=== PATIENT | female | born 1990 | race Caucasian/White ===

== ENCOUNTER 2018-04-05 09:14 | Emergency (ER) | payer OTHER ==
[2018-04-05] MEDS ORDERED: Ondansetron 4 MG Tab.DIS PO ONE (09:38)
[2018-04-05] MEDS ORDERED: Meclizine 25 MG Tab PO ONE (09:43)
--- NOTE | 2018-04-05 09:49 | EDM.PDOC ---
ED HPI GENERAL MEDICAL PROBLEM - General Chief Complaint: Gastrointestinal Problem Stated Complaint: WEAKNESS,FATIGUE Time Seen by Provider: 04/05/18 09:35 Source of Information: Reports: Patient, Old Records, RN History Limitations: Reports: No Limitations - History of Present Illness INITIAL COMMENTS - FREE TEXT/NARRATIVE: 28 yo female presents with a list of complaints. She has known endometriosis and is having some lower abdominal cramping. She has mild vertigo with nausea without vomiting. No fever. She feels like she might pass out and has done so on numerous occasions in the past. She has no blood in her stool. Feels tired more lately. Says during her menses she takes ibuprofen 800 mg q 5 h. Onset: Gradual Onset Date: 04/04/18 Duration: Hour(s):, Constant Location: Reports: Head, Abdomen Quality: Reports: Other (mild abd cramping) Severity: Mild Improves with: Reports: None Worsens with: Reports: Other (menses) Context: Reports: Other (hx of endometriosis) Associated Symptoms: Reports: Nausea/Vomiting (no vomiting). 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 Denies: Anorexia, Black Stool, Bloody Stool, Constipation, Diarrhea, Decreased Appetite, Distension, Flatus, Hematemesis, Hematochezia, Melena, Vomiting : Reports: No Symptoms Musculoskeletal: Reports: No Symptoms Skin: Reports: No Symptoms Neurological: Reports: Dizziness (mild vertigo) ED EXAM, GI/ABD - Physical Exam Exam: See Below Exam Limited By: No Limitations General Appearance: Alert, WD/WN, No Apparent Distress Eyes: Bilateral: Normal Appearance Ears: Normal External Exam, Normal Canal, Hearing Grossly Normal, Normal TMs Nose: Normal Inspection, Normal Mucosa, No Blood Throat/Mouth: Normal Inspection, Normal Lips, Normal Oropharynx, Normal Voice, No Airway Compromise Head: Atraumatic, Normocephalic Neck: Normal Inspection Respiratory/Chest: No Respiratory Distress, Lungs Clear, Normal Breath Sounds, No Accessory Muscle Use Cardiovascular: Regular Rate, Rhythm, No Edema GI/Abdominal Exam: Normal Bowel Sounds, Soft, Non-Tender, No Distention Back Exam: Normal Inspection. No: CVA Tenderness (R), CVA Tenderness (L) Extremities: Normal Inspection, Normal Range of Motion, Non-Tender, No Pedal Edema Neurological: Alert, Oriented, CN II-XII Intact, Normal Cognition, No Motor/ Sensory Deficits Psychiatric: Normal Affect, Normal Mood Skin Exam: Warm, Dry, Intact, Normal Color, No Rash Lymphatic: No Adenopathy Course - Vital Signs Last Recorded V/S: Last Vital Signs Temp 36.2 C 04/05/18 09:29 Pulse 64 04/05/18 09:29 Resp 16 04/05/18 09:29 BP 123/75 04/05/18 09:29 Pulse Ox 100 04/05/18 09:29 Orthostatic Blood Pressure [ 126/68 Standing] Orthostatic Blood Pressure [ 129/68 Sitting] Orthostatic Blood Pressure [ 114/65 Supine] - Orders/Labs/Meds Orders: Active Orders 24 hr Category Date Time Status Orthostatic Vital Signs [RC] ASDIRECTED Care 04/05/18 09:43 Active HCG QUALITATIVE,URINE [URCHEM] Stat Lab 04/05/18 09:52 Ordered Labs: Laboratory Tests 04/05/18 04/05/18 04/05/18 Range/Units 09:52 09:52 09:52 Hgb 13.1 (12.0-15.0) g/dL Creatinine (0.6-1.0) mg/dL Est Cr Clr Drug Dosing Estimated GFR (MDRD) (>60) TSH, Ultra Sensitive 0.830 (0.358-3.740) uIU/mL Urine HCG, Qual Negative 04/05/18 Range/Units 09:52 Hgb (12.0-15.0) g/dL Creatinine 0.9 (0.6-1.0) mg/dL Est Cr Clr Drug Dosing TNP Estimated GFR (MDRD) > 60 (>60) TSH, Ultra Sensitive (0.358-3.740) uIU/mL Urine HCG, Qual Meds: Medications Discontinued Medications Generic Name Dose Route Start Last Admin Trade Name Freq PRN Reason Stop Dose Admin Meclizine HCl 25 mg 04/05/18 09:43 04/05/18 09:54 Antivert PO 04/05/18 09:44 25 mg ONETIME ONE Administration Ondansetron HCl 4 mg 04/05/18 09:38 04/05/18 09:43 Zofran Odt PO 04/05/18 09:39 4 mg ONETIME ONE Administration Departure - Departure Time of Disposition: 10:41 Disposition: Home, Self-Care 01 Condition: Good Clinical Impression: Vertigo Fatigue Qualifiers: Fatigue type: unspecified Qualified Code(s): R53.83 - Other fatigue - Discharge Information *PRESCRIPTION DRUG MONITORING PROGRAM REVIEWED*: Not Applicable *COPY OF PRESCRIPTION DRUG MONITORING REPORT IN PATIENT [id number]: Not Applicable Referrals: PCP,None [Primary Care Provider] - Forms: ED Department Discharge Additional Instructions: Take meclizine as needed for vertigo. F/U in the clinic with your provider for recheck. - My Orders Last 24 Hours: My Active Orders 04/05/18 09:43 Orthostatic Vital Signs [RC] ASDIRECTED 04/05/18 09:52 HCG QUALITATIVE,URINE [URCHEM] Stat - Assessment/Plan Last 24 Hours: My Active Orders 04/05/18 09:43 Orthostatic Vital Signs [RC] ASDIRECTED 04/05/18 09:52 HCG QUALITATIVE,URINE [URCHEM] Stat
== END 2018-04-05 10:54 | disposition home or self-care (01) ==
LOC: JP.ED 09:14
DX: R42 Dizziness and giddiness (principal); R53.83 Other fatigue
CPT/HCPCS: 36415; 81025; 82565; 84443; 85018; 99285; A9270